=== PATIENT | male | born 1995 | race Two or more races ===

== ENCOUNTER 2019-05-21 09:25 | Emergency (ER) | payer SELFPAY ==
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
[2019-05-21 10:07] LABS: ABSOLUTE BASOPHILS # (AUTO) 0.1 10^3/uL (0.0-0.2); ABSOLUTE LYMPHOCYTES (AUTO) 1.4 10^3/uL (0.5-4.7); ABSOLUTE MONOCYTES (AUTO) 0.9 10^3/uL (0.1-1.4); ABSOLUTE NEUT (AUTO) 12.7 10^3/uL (1.7-8.2); BASOPHILS % (AUTO) 0.5 % (0-2); EOSINOPHILS % (AUTO) 0.3 % (0-6); HEMATOCRIT 46.6 % (37.9-51.0); HEMOGLOBIN 16.3 g/dL (13.5-17.0); LYMPHOCYTES % (AUTO) 9.1 % (13-45); MEAN CORPUSCULAR VOLUME 89 fl (80-97); PLATELET COUNT 237 10^3/uL (150-450); RED BLOOD COUNT 5.26 10^6/uL (4.35-5.55); RED CELL DISTRIBUTION WIDTH 12.4 % (11.5-14.0); SEGMENTED NEUTROPHILS % (AUTO) 84.1 % (42-78); TOTAL CELLS COUNTED % (AUTO) 100 %; WHITE BLOOD COUNT 15.1 10^3/uL (4.0-10.5)
[2019-05-21 10:35] LABS: ALKALINE PHOSPHATASE 92 U/L (38-126); ANION GAP 13 (5-19); ASPARTATE AMINO TRANSFERASE 20 U/L (17-59); BILIRUBIN,DIRECT 0.3 mg/dL (0.0-0.4); BILIRUBIN,TOTAL 0.7 mg/dL (0.2-1.3); BLOOD UREA NITROGEN 15 mg/dL (7-20); CALCIUM 10.1 mg/dL (8.4-10.2); CARBON DIOXIDE 29 mmol/L (22-30); CHLORIDE 99 mmol/L (98-107); CREATINE KINASE 86 U/L (55-170); GLUCOSE 113 mg/dL (75-110); POTASSIUM 4.4 mmol/L (3.6-5.0); TOTAL PROTEIN 8.2 g/dL (6.3-8.2)
[2019-05-21 10:44] LABS: URINE AMPHETAMINES SCREEN NEGATIVE; URINE BARBITURATES SCREEN NEGATIVE; URINE BENZODIAZEPINES SCREEN NEGATIVE; URINE COCAINE SCREEN NEGATIVE; URINE MARIJUANA (THC) SCREEN UNCONFIRMED POSITIVE; URINE METHADONE SCREEN NEGATIVE; URINE PHENCYCLIDINE SCREEN NEGATIVE
[2019-05-21 11:38] LABS: CHLAM PCR NOT DETECTED (NOT DETECT)
[2019-05-21 12:16] LABS: APPEARANCE,URINE CLEAR; BILIRUBIN,URINE NEGATIVE (NEGATIVE); COLOR,URINE STRAW; GLUCOSE, URINE NEGATIVE (NEGATIVE); KETONES,URINE NEGATIVE (NEGATIVE); LEUKOCYTE ESTERASE,URINE NEGATIVE (NEGATIVE); NITRITE,URINE NEGATIVE (NEGATIVE); PROTEIN,URINE NEGATIVE (NEGATIVE); URINE SPECIFIC GRAVITY 1.004; UROBILINOGEN,URINE NEGATIVE mg/dL (<2.0)
--- NOTE | 2019-05-21 13:30 | RADIOLOGY REPORT (SQ) ---
EXAM DESCRIPTION: CT ABD/PELVIS NO ORAL OR IV COMPLETED DATE/TIME: 05/21/2019 1:03 pm REASON FOR STUDY: flank pain, leukycytosis COMPARISON: None. TECHNIQUE: CT scan of the abdomen and pelvis performed without intravenous or oral contrast. Images reviewed with lung, soft tissue, and bone windows. Reconstructed coronal and sagittal MPR images revi ewed. All images stored on PACS. All CT scanners at this facility use dose modulation, iterative reconstruction, and/or weight based d osing when appropriate to reduce radiation dose to as low as reasonably achievable (ALARA). [facility]: Dose Right [facility]: CareDose [facility]: Dose Right [facility]: Teradose 4D [facility]: [employer] RADIATION DOSE: CT Rad equipment meets quality standard of care and radiation dose reduction techniq ues were employed. CTDIvol: 6.1 mGy. DLP: 303 mGy-cm.mGy. LIMITATIONS: None. FINDINGS: LOWER CHEST: No significant findings. No nodules or infiltrates. NON-CONTRASTED LIVER, SPLEEN, ADRENALS: Evaluation limited by lack of IV contrast. No identified sign ificant masses. PANCREAS: No masses. No peripancreatic inflammatory changes. GALLBLADDER: No identified stones by CT criteria. No inflammatory changes to suggest cholecystitis. RIGHT KIDNEY AND URETER: No suspicious masses. Assessment limited by lack of IV contrast. No signif icant calcifications. No hydronephrosis or hydroureter. LEFT KIDNEY AND URETER: No suspicious masses. Assessment limited by lack of IV contrast. No signifi cant calcifications. No hydronephrosis or hydroureter. AORTA AND RETROPERITONEUM: No aneurysm. No retroperitoneal masses or adenopathy. BOWEL AND PERITONEAL CAVITY: No obvious masses or inflammatory changes. No free fluid. APPENDIX: Normal. PELVIS, BLADDER, AND ABDOMINAL WALL:No abnormal masses. No free fluid. Bladder normal. BONES: No significant findings. OTHER: No other significant finding. IMPRESSION: No acute CT findings of the abdomen or pelvis to explain flank pain. No hydronephrosis or urinary tract calculus. COMMENT: Quality ID # [id number]: Final reports with documentation of one or more dose reduction techniques (e.g., Automated exposure control, adjustment of the mA and/or kV according to patient size, use of iterative reconstruction technique) TECHNICAL DOCUMENTATION: JOB ID: [id number]- All Rights Reserved Reading location - IP/workstation name: [email or web address]
--- NOTE | 2019-05-21 14:36 | ER Document Report ---
ED GI/ - General Chief Complaint: Urinary Problem Stated Complaint: LOW BACK PAIN Time Seen by Provider: 05/21/19 09:41 Primary Care Provider: ITZEL SANCHES [NO LOCAL MD] - Follow up as needed Mode of Arrival: Ambulatory Information source: Patient Notes: Patient is an otherwise healthy 24-year-old male presenting to the emergency department chief complaint of fever, nausea, vomiting and low back pain. Patient reports symptoms started 3 days ago. He denies any diarrhea. He reports his last normal bowel movement was yesterday, denies any constipation. He reports pain is to his bilateral lumbar area. He denies any trauma to this area. TRAVEL OUTSIDE OF THE [place] IN LAST 30 DAYS: No - Related Data Allergies/Adverse Reactions: No Known Allergies Allergy (Unverified 05/21/19 09:27) Past Medical History - General Information source: Patient - Social History Smoking Status: Current Every Day Smoker Chew tobacco use (# tins/day): No Frequency of alcohol use: None Drug Abuse: Marijuana Family History: Reviewed & Not Pertinent Patient has suicidal ideation: No Patient has homicidal ideation: No - Medical History Medical History: Negative Renal/ Medical History: Denies: Hx Peritoneal Dialysis Past Surgical History: Reports: Hx Orthopedic Surgery - right hand - Immunizations Immunizations up to date: Yes Review of Systems - Review of Systems Constitutional: Fever EENT: No symptoms reported Cardiovascular: No symptoms reported Respiratory: No symptoms reported Gastrointestinal: Nausea, Vomiting Genitourinary: Flank pain, Hematuria Male Genitourinary: No symptoms reported Musculoskeletal: No symptoms reported Skin: No symptoms reported Hematologic/Lymphatic: No symptoms reported Neurological/Psychological: No symptoms reported Physical Exam - Vital signs Vitals: Temp Pulse Resp BP Pulse Ox 98.0 F 73 18 136/73 H 97 05/21/19 09:30 05/21/19 09:30 05/21/19 09:30 05/21/19 09:30 05/21/19 09:30 - Notes Notes: PHYSICAL EXAMINATION: GENERAL: Well-appearing, well-nourished and in no acute distress. HEAD: Atraumatic, normocephalic. EYES: Pupils equal round and reactive to light, extraocular movements intact, sclera anicteric, conjunctiva are normal. ENT: Nares patent, oropharynx clear without exudates. Moist mucous membranes. NECK: Normal range of motion, supple without lymphadenopathy LUNGS: Breath sounds clear to auscultation bilaterally and equal. No wheezes rales or rhonchi. HEART: Regular rate and rhythm without murmurs ABDOMEN: Soft, nontender, nondistended abdomen. No guarding, no rebound. No masses appreciated. No CVA tenderness. Musculoskeletal: Normal range of motion, no pitting or edema. No cyanosis. NEUROLOGICAL: Cranial nerves grossly intact. Normal speech, normal gait. Normal sensory, motor exams PSYCH: Normal mood, normal affect. SKIN: Warm, Dry, normal turgor, no rashes or lesions noted. Course - Re-evaluation Re-evalutation: At the time of my initial evaluation patient has already been seen by provider in triage, orders were initiated and patient is already received 2 L of IV fluids. Patient reports to me that he feels that all the symptoms have completely resolved and he is feeling fine at this time. Laboratory 05/21/19 05/21/19 05/21/19 09:55 09:55 09:55 WBC 15.1 H RBC 5.26 Hgb 16.3 Hct 46.6 MCV 89 MCH 31.0 MCHC 35.0 RDW 12.4 Plt Count 237 Seg Neutrophils % 84.1 H Lymphocytes % 9.1 L Monocytes % 6.0 Eosinophils % 0.3 Basophils % 0.5 Absolute Neutrophils 12.7 H Absolute Lymphocytes 1.4 Absolute Monocytes 0.9 Absolute Eosinophils 0.0 Absolute Basophils 0.1 Sodium 140.7 Potassium 4.4 Chloride 99 Carbon Dioxide 29 Anion Gap 13 BUN 15 Creatinine 0.88 Est GFR ( Amer) > 60 Est GFR (Non-Af Amer) > 60 Glucose 113 H Calcium 10.1 Total Bilirubin 0.7 Direct Bilirubin 0.3 Neonat Total Bilirubin Not Reportable Neonat Direct Bilirubin Not Reportable Neonat Indirect Bili Not Reportable AST 20 ALT 14 Alkaline Phosphatase 92 Creatine Kinase 86 Total Protein 8.2 Albumin 5.0 Lipase 46.2 Urine Color Urine Appearance Urine pH Ur Specific [place] Urine Protein Urine Glucose (UA) Urine Ketones Urine Blood Urine Nitrite Urine Bilirubin Urine Urobilinogen Ur Leukocyte Esterase Urine WBC (Auto) Urine RBC (Auto) U Hyaline Cast (Auto) Urine Bacteria (Auto) Urine Red Cell Clumps Urine WBC Clumps Squamous Epi Cells Auto U Non-Squamous Epis Auto Calcium Carbonate Cryst Calcium Phosphate Cryst Calcium Oxalate Cr Auto Leucine Crystals Cystine Crystals Uric Acid Cryst (Auto) Triple Phos Cryst (Auto) Tyrosine Crystals Amorphous Sediment Auto Cellular Casts Epithelial Casts (Auto) Fatty Casts Granular Casts (Auto) Waxy Casts (Auto) Broad Casts RBC Casts (Auto) WBC Casts (Auto) Urine Mucus (Auto) U Trichomonas (Auto) Ur Yeast w Hyphae Urine Yeast (Budding) Urine Ascorbic Acid Urine Opiates Screen Urine Methadone Screen Ur Barbiturates Screen Ur Phencyclidine Scrn Ur Amphetamines Screen U Benzodiazepines Scrn Urine Cocaine Screen U Marijuana (THC) Screen Chlamydia DNA (PCR) NOT DETECTED N.gonorrhoeae DNA (PCR) NOT DETECTED 05/21/19 05/21/19 05/21/19 09:55 09:55 11:54 WBC RBC Hgb Hct MCV MCH MCHC RDW Plt Count Seg Neutrophils % Lymphocytes % Monocytes % Eosinophils % Basophils % Absolute Neutrophils Absolute Lymphocytes Absolute Monocytes Absolute Eosinophils Absolute Basophils Sodium Potassium Chloride Carbon Dioxide Anion Gap BUN Creatinine Est GFR ( Amer) Est GFR (Non-Af Amer) Glucose Calcium Total Bilirubin Direct Bilirubin Neonat Total Bilirubin Neonat Direct Bilirubin Neonat Indirect Bili AST ALT Alkaline Phosphatase Creatine Kinase Total Protein Albumin Lipase Urine Color Cancelled STRAW Urine Appearance Cancelled CLEAR Urine pH Cancelled 6.0 Ur Specific [place] Cancelled 1.004 Urine Protein Cancelled NEGATIVE Urine Glucose (UA) Cancelled NEGATIVE Urine Ketones Cancelled NEGATIVE Urine Blood Cancelled MODERATE H Urine Nitrite Cancelled NEGATIVE Urine Bilirubin Cancelled NEGATIVE Urine Urobilinogen Cancelled NEGATIVE Ur Leukocyte Esterase Cancelled NEGATIVE Urine WBC (Auto) Cancelled 0 Urine RBC (Auto) Cancelled U Hyaline Cast (Auto) Cancelled Urine Bacteria (Auto) Cancelled Urine Red Cell Clumps Cancelled Urine WBC Clumps Cancelled Squamous Epi Cells Auto Cancelled U Non-Squamous Epis Auto Cancelled Calcium Carbonate Cryst Cancelled Calcium Phosphate Cryst Cancelled Calcium Oxalate Cr Auto Cancelled Leucine Crystals Cancelled Cystine Crystals Cancelled Uric Acid Cryst (Auto) Cancelled Triple Phos Cryst (Auto) Cancelled Tyrosine Crystals Cancelled Amorphous Sediment Auto Cancelled Cellular Casts Cancelled Epithelial Casts (Auto) Cancelled Fatty Casts Cancelled Granular Casts (Auto) Cancelled Waxy Casts (Auto) Cancelled Broad Casts Cancelled RBC Casts (Auto) Cancelled WBC Casts (Auto) Cancelled Urine Mucus (Auto) Cancelled RARE U Trichomonas (Auto) Cancelled Ur Yeast w Hyphae Cancelled Urine Yeast (Budding) Cancelled Urine Ascorbic Acid Cancelled NEGATIVE Urine Opiates Screen NEGATIVE Urine Methadone Screen NEGATIVE Ur Barbiturates Screen NEGATIVE Ur Phencyclidine Scrn NEGATIVE Ur Amphetamines Screen NEGATIVE U Benzodiazepines Scrn NEGATIVE Urine Cocaine Screen NEGATIVE U Marijuana (THC) Screen UNCONFIRMED POSITIVE Chlamydia DNA (PCR) N.gonorrhoeae DNA (PCR) Abdomen/Pelvis CT 05/21/19 12:40 IMPRESSION: No acute CT findings of the abdomen or pelvis to explain flank pain. No hydronephrosis or urinary tract calculus. CT abdomen pelvis is negative for any acute findings. He does have an elevated white blood count however this could be due to vomiting. The CT scan does not show any kidney stones and the appendix appears normal. Patient's abdomen is soft and nontender. He has not had a fever here in the emergency department. I will discharge him home at this time with strict ED return precautions as outlined in his discharge instructions. The patient's emergency department workup and current diagnosis were explained to the patient and or family. Follow-up instructions were provided. Medications if prescribed were discussed. Instructions for when to return to the emergency department including specific worrisome symptoms were discussed with the patient and/or family. - Vital Signs Vital signs: Temp Pulse Resp BP Pulse Ox 98.7 F 74 17 107/66 98 05/21/19 14:54 05/21/19 14:54 05/21/19 14:54 05/21/19 14:54 05/21/19 14:54 - Laboratory Result Diagrams: 05/21/19 09:55 05/21/19 09:55 Laboratory results interpreted by me: 05/21/19 05/21/19 05/21/19 09:55 09:55 11:54 WBC 15.1 H Seg Neutrophils % 84.1 H Lymphocytes % 9.1 L Absolute Neutrophils 12.7 H Glucose 113 H Urine Blood MODERATE H Discharge - Discharge Clinical Impression: Low back pain, Hematuria Condition: Stable Disposition: HOME, SELF-CARE Additional Instructions: Your work-up today was unremarkable other than some blood in your urine. It is possible that you had a kidney stone that has already passed. Please drink plenty of fluids over the next several days. Try to take it easy. I have provided you a work note in case you need it. If you continue to have back pain please take Tylenol or ibuprofen. Apply moist heat to the area. If your symptoms worsen in any way or you have persistent fevers, vomiting or worsening pain please return to the emergency department for another evaluation. Prescriptions: Ondansetron [Zofran Odt 4 mg Tablet] 1 - 2 tab PO Q4H PRN #15 tab.rapdis PRN Reason: For Nausea/Vomiting Forms: Return to Work Referrals: LOCALMD,NO [NO LOCAL MD] - Follow up as needed
[2019-05-21 14:56] VITALS: BP 107/66
== END 2019-05-21 14:56 | disposition home or self-care (01) ==
LOC: ER 09:25
DX: M54.5 Low back pain (principal); R31.9 Hematuria, unspecified; R50.9 Fever, unspecified; R11.2 Nausea with vomiting, unspecified; F17.200 Nicotine dependence, unspecified, uncomplicated; F12.10 Cannabis abuse, uncomplicated; R10.9 Unspecified abdominal pain; D72.829 Elevated white blood cell count, unspecified
CPT/HCPCS: 36415; 74176; 80053; 80307; 81001; 82550; 83690; 85025; 87491; 87591; 99284

== ENCOUNTER 2019-11-02 21:31 | Emergency (ER) | payer SELFPAY ==
[2019-11-02] MEDS ORDERED: DIPH/PERTUSS(ACELL)/TETANUS VAC/PF 0.5 ML SYR (>=10YO) IM ONE (21:58)
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
[2019-11-02] MEDS ORDERED: LIDOCAINE 1%/EPINEPHRINE INJ 20 ML VIAL INJ ONE (22:11)
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
[2019-11-02 23:06] VITALS: BP 118/69
== END 2019-11-02 23:21 | disposition home or self-care (01) ==
LOC: ER 21:31
PROC: 0HQ1XZZ Repair Face Skin, External Approach (ICD-10-PCS; principal; 2019-11-02)
PROC: 0HQ0XZZ Repair Scalp Skin, External Approach (ICD-10-PCS; 2019-11-02)
DX: S09.90XA Unspecified injury of head, initial encounter (principal); S01.91XA Laceration without foreign body of unspecified part of head, initial encounter; S01.01XA Laceration without foreign body of scalp, initial encounter; S01.81XA Laceration without foreign body of other part of head, initial encounter; V29.9XXA Motorcycle rider (driver) (passenger) injured in unspecified traffic accident, initial encounter; F17.200 Nicotine dependence, unspecified, uncomplicated
CPT/HCPCS: 99283; 90471; 70450; 72125; 90715; 12011; 12002; J3490

== ENCOUNTER 2019-11-12 11:57 | Emergency (ER) | payer SELFPAY | END 2019-11-12 13:00 | disposition left against medical advice (07) | LOC: ER 11:57 | DX: Z53.21 Procedure and treatment not carried out due to patient leaving prior to being seen by health care provider (principal) ==

== ENCOUNTER 2019-11-14 22:52 | Emergency (ER) | payer SELFPAY ==
[2019-11-14 23:08] VITALS: BP 119/70
--- NOTE | 2019-11-14 23:24 | ER Document Report ---
ED General - General Chief Complaint: Suture Removal Stated Complaint: WOUND RECHECK Time Seen by Provider: 11/14/19 23:18 Primary Care Provider: [facility] [Provider Group] - Follow up in 3-5 days DERRICK CRAIG MD [ACTIVE STAFF] - Follow up in 3-5 days Notes: 24-year-old male presents for removal of jr and removal of sutures that were placed to his right head. Patient was seen on November 02 and had 6 jr placed to his scalp and 3 sutures placed to his hairline on the right side. Patient denies any fever. TRAVEL OUTSIDE OF THE [place] IN LAST 30 DAYS: No - Related Data Allergies/Adverse Reactions: No Known Allergies Allergy (Unverified 05/21/19 09:27) Past Medical History - Social History Smoking Status: Current Every Day Smoker Family History: Reviewed & Not Pertinent Patient has suicidal ideation: No Patient has homicidal ideation: No Renal/ Medical History: Denies: Hx Peritoneal Dialysis Past Surgical History: Reports: Hx Orthopedic Surgery - right hand - Immunizations Immunizations up to date: Yes Review of Systems - Review of Systems Notes: Constitutional: Negative for fever. HENT: Negative for sore throat. Eyes: Negative for visual changes. Cardiovascular: Negative for chest pain. Respiratory: Negative for shortness of breath. Gastrointestinal: Negative for abdominal pain, vomiting or diarrhea. Genitourinary: Negative for dysuria. Musculoskeletal: Negative for back pain. Skin: Positive for laceration. Negative for rash. Neurological: Negative for headaches, weakness or numbness. 10 point ROS negative except as marked above and in HPI. Physical Exam - Vital signs Vitals: Temp Pulse Resp BP Pulse Ox 98.4 F 87 12 119/70 97 11/14/19 23:06 11/14/19 23:06 11/14/19 23:06 11/14/19 23:06 11/14/19 23:06 - Notes Notes: GENERAL: Well-appearing, well-nourished and in no acute distress. HEAD: Normocephalic. #6 jr on right frontal scalp - healing well, no wound dehiscence, no swelling, no purulent drainage, no erythema. #3 sutures to right lateral hairline - healing well, no wound dehiscence, no swelling, no purulent drainage, no erythema. EYES: Extraocular movements intact, sclera anicteric, conjunctiva are normal. NECK: Normal range of motion, supple without lymphadenopathy or JVD. EXTREMITIES: Normal range of motion, no pitting or edema. No clubbing or cyanosis. NEUROLOGICAL: Cranial nerves II through XII grossly intact. Normal speech, normal gait. PSYCH: Normal mood, normal affect. SKIN: Warm, Dry, normal turgor, no rashes or lesions noted. Course - Re-evaluation Re-evalutation: 11/14/19 nontoxic, well-appearing 24-year-old male presents for suture and staple removal. #6 jr noted in #3 sutures noted. Areas are healing well. No signs of infection or wound dehiscence. 11/14/19 23:40 #6 jr were removed with staple remover. #3 sutures were removed. Patient tolerated procedure well. Strict return precautions given. Patient given close follow-up with PCP. Patient voices understanding and agrees with plan of care. - Vital Signs Vital signs: Temp Pulse Resp BP Pulse Ox 98.4 F 87 12 119/70 97 11/14/19 23:06 11/14/19 23:06 11/14/19 23:06 11/14/19 23:06 11/14/19 23:06 Discharge - Discharge Clinical Impression: Visit for suture removal, Removal of jr Condition: Stable Disposition: HOME, SELF-CARE Additional Instructions: You had your jr and your sutures removed. Please keep area clean. Please watch for any signs of infection which include redness to area, purulent drainage, area being hotter to touch, increased swelling. Follow-up with your primary care doctor 1 of the clinics listed in 3 to 5 days. Return immediately to ER if you start having any worsening symptoms, including fever, signs of infection, wound reopening, nausea/vomiting, abdominal pain, chest pain, shortness of breath, or any other symptoms that are concerning to you. Referrals: DERRICK CRAIG MD [ACTIVE STAFF] - Follow up in 3-5 days [facility] [Provider Group] - Follow up in 3-5 days
== END 2019-11-14 23:45 | disposition home or self-care (01) ==
LOC: ER 22:52
DX: S01.01XD Laceration without foreign body of scalp, subsequent encounter (principal); X58.XXXD Exposure to other specified factors, subsequent encounter